=== PATIENT | male | born 2000 | race Caucasian/White ===

== ENCOUNTER 2022-06-15 05:45 | Day surgery (SDC) | payer OTHER, SELFPAY ==
[2022-06-15] VITALS (16 sets, daily range): BP systolic 99–122; BP diastolic 58–85; PULSE 61–84; RESP 12–18; TEMP 36.4–37.1; O2SAT 95–100; BMI 20.2
--- NOTE | 2022-06-15 05:59 | ED.GENADULT ---
HPI - General Adult General Time Seen by Provider: 05:59 Date Seen: 06/15/22 Chief complaint: Abdominal Pain Stated complaint: abdominal pain Time Seen by Provider: 06/15/22 05:55 Source: patient and RN notes reviewed Mode of arrival: ambulatory Limitations: no limitations History of Present Illness HPI narrative: 21-year-old male who presents with abdominal pain. Patient started having abdominal pain with nausea, vomiting day before yesterday. Pain is worse with movement. Denies diarrhea, no blood in the stools, no urinary symptoms. Has taken antacids with no relief. No ill contacts. Denies chest pain, shortness of breath, cough. Subjective fever and body aches yesterday. Related Data Home Medications Medication Instructions Recorded Confirmed cetirizine 10 mg tablet (24Hour 10 mg PO DAILY PRN 06/15/22 06/15/22 Allergy) escitalopram oxalate 10 mg tablet 10 mg PO DAILY 06/15/22 06/15/22 (Lexapro) finasteride 1 mg tablet 1 mg PO DAILY 06/15/22 06/15/22 lisdexamfetamine 30 mg capsule 30 mg PO DAILY 06/15/22 06/15/22 (Vyvanse) spironolactone 100 mg tablet 100 mg PO DAILY 06/15/22 06/15/22 (Aldactone) Allergies Allergy/AdvReac Type Severity Reaction Status Date / Time No Known Drug Allergies Allergy Verified 06/15/22 06:07 Review of Systems Status of ROS: Reports: 10 or more systems reviewed and unremarkable except as noted in History and below [facility] Medical History (Updated 06/15/22 @ 07:44 by Valentino Yu MD) Depression ?F32.A - Depression, unspecified (ICD-10) Surgical History (Updated 06/15/22 @ 06:29 by Dorian Robert RN) No significant past surgical history Social History Smoking Status: Never smoker Do you use any of these nicotine containing products: Vaping Products Second hand tobacco smoke exposure: No How often do you have a drink containing alcohol: never How often do you have six or more drinks on one occasion: Never AUDIT-C Alcohol total score: 0 Non-prescribed substance use: marijuana (any form) Exam Narrative: Exam Narrative: General: Well-developed and well-nourished, no acute distress Head: Atraumatic and normocephalic Eyes: Pupils are equal reactive, extraocular motions intact, conjunctiva clear ENT: External nose and ears are normal, posterior pharynx without erythema or exudate Neck: No midline cervical tenderness, full spontaneous range of motion the neck, trachea midline, no adenopathy Heart: Regular rate and rhythm no murmurs or thrills Lungs: Clear to auscultation bilaterally without wheezes or crackles Abdomen: Soft, diffuse lower abdominal tenderness worse in the right lower quadrant,, nondistended with active bowel sounds Musculoskeletal: No tenderness, deformity, or edema Neurologic: Awake, alert, and oriented x3, no gross focal neurologic deficits, cranial nerves intact as tested Psych: Mood and affect are appropriate Skin: No rashes Const: Vital Signs, click to edit/add: Vital Signs - 24 hr 06/15/22 05:56 06/15/22 06:20 Temperature 98.2 F 98.2 F Pulse Rate [Right Pulse Oximeter] 84 Respiratory Rate 18 Blood Pressure [Ri ght Upper Arm] 115/72 Pulse Oximetry 99 Oxygen Delivery Me thod Room Air Course Course Hospital Course: Patient seen examined, prior records reviewed. Patient presents with nausea, vomiting, abdominal pain. Initially says the abdominal pain is in the upper abdomen low abdomen, on exam diffuse lower abdominal tenderness worse on the right side. Likely gastroenteritis, cannot exclude appendicitis. Labs and CT scan ordered along with fluids and Zofran. Reevaluation(s) Reevaluation #1: Labs independently interpreted by me demonstrate leukocytosis, basic panel is reassuring. CT scan performed without contrast although ordered with contrast independently interpreted by me demonstrates mildly prominent appendix at 7 mm without definite surrounding inflammatory changes, radiology interpretation agrees. Patient reexamined and again abdominal tenderness is worse in the right lower quadrant. Concern for possible early appendicitis. Discussed with Dr. Wilson, general surgery, who will examine the patient in the department. Time: 07:17 Reevaluation #2: Patient seen by Dr. Wilson in the emergency department, plan for surgery. No recommendations for antibiotics at this time. Time: 07:44 Vital Signs Vital signs: Initial Vital Signs Temperature 98.2 F 06/15/22 05:56 Temperature Source Temporal Artery Scan 06/15/22 05:56 Pulse Rate 84 06/15/22 05:56 Respiratory Rate 18 06/15/22 05:56 Blood Pressure 115/72 06/15/22 05:56 Blood Pressure Mean 86 06/15/22 05:56 Blood Pressure Position Sitting 06/15/22 05:56 Pulse Oximetry 99 06/15/22 05:56 Oxygen Delivery Method Room Air 06/15/22 05:56 Vital Signs Temperature 98.2 F 06/15/22 05:56 Pulse Rate 84 06/15/22 05:56 Respiratory Rate 18 06/15/22 05:56 Blood Pressure 115/72 06/15/22 05:56 Pulse Oximetry 99 06/15/22 05:56 Oxygen Delivery Method Room Air 06/15/22 05:56 Temperature 98.2 F 06/15/22 06:20 Pulse Rate 84 06/15/22 05:56 Respiratory Rate 18 06/15/22 05:56 Blood Pressure 115/72 06/15/22 05:56 Pulse Oximetry 99 06/15/22 05:56 Oxygen Delivery Method Room Air 06/15/22 05:56 Medical Decision Making Medical Records Medical records reviewed: Yes I reviewed the patient's medical records Lab Data Lab results reviewed: Yes I reviewed the patient's lab results Labs: Lab Results 06/15/22 Range/Units 06:18 WBC 17.53 H (4.50-11.00) K/uL RBC 4.10 L (4.30-5.90) m/uL Hgb 13.1 L (13.5-17.5) gm/dL Hct 37.9 (37.0-53.0) % MCV 92 (80-100) fL MCH 32 (26-34) pg MCHC 35 (32-36) gm/dL RDW Coeff of Shimon 11.9 (11.5-15.5) % Plt Count 222 (140-440) K/uL Neut % (Auto) 85.2 H (42.0-72.0) % Lymph % (Auto) 6.3 L (20-44) % [place] % (Auto) 7.2 (0.0-11.0) % Eos % (Auto) 1.0 (0.0-7.0) % Baso % (Auto) 0.1 (0.0-3.0) % Neut # (Auto) 14.90 H (1.7-7.0) K/uL Lymph # (Auto) 1.10 (0.90-2.90) K/uL [place] # (Auto) 1.30 H (0.00-0.90) K/UL Eos # (Auto) 0.20 (0.00-0.50) K/uL Baso # (Auto) 0.00 (0.00-0.30) K/uL Sodium 135 (135-149) mmol/L Potassium 3.6 (3.6-5.1) mmol/L Chloride 100 (96-114) mmol/L Carbon Dioxide 29 (20-32) mmol/L BUN 10 (5-24) mg/dL Creatinine 0.7 (0.5-1.5) mg/dL Estimated Creat Clear 153.99 Estimated GFR 134 ml/min Glucose 118 H (60-115) mg/dL Calcium 9.3 (8.4-10.6) mg/dL Total Bilirubin 1.4 (0.1-1.5) mg/dL Direct Bilirubin 0.0 (0.0-0.5) mg/dL AST 27 (12-35) U/L ALT 29 (4-50) U/L Alkaline Phosphatase 66 (40-150) U/L Total Protein 7.5 (6.0-8.3) g/dL Albumin 4.4 (3.3-5.0) g/dL Lipase 16 L (23-300) U/L Discharge Plan Discharge Clinical Impression: Acute appendicitis Patient Disposition: XFER to OR
--- NOTE | 2022-06-15 06:06 | CRLHL7_ITS ---
For Patients: As a result of the 21st Century Cures Act, medical imaging exams and procedure reports are released immediately into your electronic medical record. You may view this report before your referring provider. If you have questions, please contact your health care provider. INDICATION: Right upper quadrant pain. COMPARISON: None TECHNIQUE: CT examination of the abdomen and pelvis was performed without intravenous contrast. Thin section axial images were obtained from the lung bases through the pubic symphysis. Oral contrast was not administered. Please note that all CT scans at this facility use dose modulation, iterative reconstruction, and/or weight-based dosing when appropriate to reduce radiation dose to as low as reasonably achievable. FINDINGS: LUNG BASES: The lung bases as visualized appear normal.The heart size is normal at the lung bases. LIVER/BILIARY SYSTEM:The liver is normal in size and configuration given the lack of intravenous contrast. There is no visible focal mass and there is no intra- or extra hepatic biliary ductal dilatation.The gall bladder appears normal. ADRENALS: Normal non-contrast appearance KIDNEYS, URETERS and BLADDER:The kidneys are normal in size. There is no calcified calculus. There is no hydronephrosis or hydroureter or perinephric stranding. A 2 millimeter calcification is noted in the right pelvis. This does not appear to be in the right ureter though correlate with urinalysis. SPLEEN:Normal non-contrast appearance. PANCREAS: Normal non-contrast appearance. RETROPERITONEUM and MESENTERY: There is no mass, adenopathy or aortic aneurysm. GASTROINTESTINAL SYSTEM: The appendix is mildly prominent measuring about 7 millimeters. Greater than 6 millimeters is considered abnormal. No definite surrounding inflammatory change. PELVIS: No mass, adenopathy or free fluid. OSSEOUS STRUCTURES and ABDOMINAL WALL: There is an age-appropriate appearance of the osseous structures.No significant abdominal wall defect. OTHER: No free fluid or free air. IMPRESSION: 1. No specific abnormality noted in the right upper quadrant. 2. The appendix is mildly prominent measuring about 7 millimeters. Greater than 6 millimeters is generally considered abnormal. No definite surrounding inflammatory change. Correlate with potential signs symptoms of very early appendicitis. 3. Right pelvic calcification probably a phlebolith. No definite evidence of right-sided obstructive uropathy Please note that all CT scans at this facility use dose modulation, iterative reconstruction, and/or weight-based dosing when appropriate to reduce radiation dose to as low as reasonably achievable. Dictated by Jackson Monteiro MD @ 06/15/2022 7:08:05 AM (Electronically Signed)
[2022-06-15] MEDS: LACTATED RINGERS 1000 ML 1,000 ML IV (06:18)
[2022-06-15] MEDS: ONDANSETRON 2 MG/ML inj 4 MG IVP (06:18)
[2022-06-15] MEDS: KETOROLAC 15 MG/ML inj IVP (06:20)
[2022-06-15 06:29] LABS: Basophils Percent Auto 0.1 % (0.0-3.0); Hematocrit 37.9 % (37.0-53.0); Hemoglobin* 13.1 gm/dL (13.5-17.5); Immature Granulocytes Pct Auto 0.2 %; Lymphocytes Percent Auto 6.3 % (20-44); Mean Corpuscular HGB Conc 35 gm/dL (32-36); Mean Corpuscular Hemoglobin 32 pg (26-34); Mean Corpuscular Volume 92 fL (80-100); Monocytes Percent Auto 7.2 % (0.0-11.0); Neutrophils Percent Auto 85.2 % (42.0-72.0); Platelet Count* 222 K/uL (140-440); RDW Coefficient of Variation % 11.9 % (11.5-15.5); White Blood Count* 17.53 K/uL (4.50-11.00)
[2022-06-15 06:31] LABS: Slide Review Reflex No
[2022-06-15 06:38] LABS: Albumin* 4.4 g/dL (3.3-5.0)
[2022-06-15 06:39] LABS: Chloride* 100 mmol/L (96-114); Potassium* 3.6 mmol/L (3.6-5.1); Sodium* 135 mmol/L (135-149)
[2022-06-15 06:41] LABS: Aspartate Amino Transferase* 27 U/L (12-35); Bilirubin Total* 1.4 mg/dL (0.1-1.5); Carbon Dioxide* 29 mmol/L (20-32); Creatinine* 0.7 mg/dL (0.5-1.5); Est. Creatinine Clearance* 153.99; Estimated Glomerular Filt Rate 134 ml/min; Total Protein* 7.5 g/dL (6.0-8.3)
[2022-06-15 06:42] LABS: Alanine Aminotransferase* 29 U/L (4-50); Alkaline Phosphatase* 66 U/L (40-150); Blood Urea Nitrogen* 10 mg/dL (5-24); Calcium* 9.3 mg/dL (8.4-10.6); Glucose* 118 mg/dL (60-115); Lipase* 16 U/L (23-300)
--- NOTE | 2022-06-15 07:36 | PM.GSHP ---
History of Present Illness History of Present Illness Date Seen: 06/15/22 Chief complaint: abdominal pain Narrative: Roosevelt Bautista is a 21 year old male presented to the emergency department with worsening right lower quadrant abdominal pain. He states that the pain started around Sunday. Initially was higher up in his belly but then started to gravitate down towards the right lower quadrant. He does think he might have had pain like this before, although it has never been this severe. He does report a decrease in appetite. Denies any associated nausea or vomiting. He has not had a bowel movement, but has had a moment where he felt like he might have diarrhea. No fevers or chills. Review of Systems Status of ROS: Reports: 6 or more systems reviewed and unremarkable except as noted in History and below [facility] Medical History (Updated 06/15/22 @ 07:44 by Valentino Yu MD) Depression ?F32.A - Depression, unspecified (ICD-10) Surgical History (Updated 06/15/22 @ 06:29 by Dorian Robert RN) No significant past surgical history Social History Smoking Status: Never smoker Do you use any of these nicotine containing products: Vaping Products Second hand tobacco smoke exposure: No How often do you have a drink containing alcohol: never How often do you have six or more drinks on one occasion: Never AUDIT-C Alcohol total score: 0 Non-prescribed substance use: marijuana (any form) Meds Home Medications and Allergies Home Medications Medication Instructions Recorded Confirmed Type cetirizine 10 mg tablet (24Hour 10 mg PO DAILY PRN 06/15/22 06/15/22 History Allergy) escitalopram oxalate 10 mg tablet 10 mg PO DAILY 06/15/22 06/15/22 History (Lexapro) finasteride 1 mg tablet 1 mg PO DAILY 06/15/22 06/15/22 History lisdexamfetamine 30 mg capsule 30 mg PO DAILY 06/15/22 06/15/22 History (Vyvanse) spironolactone 100 mg tablet 100 mg PO DAILY 06/15/22 06/15/22 History (Aldactone) Allergies Allergy/AdvReac Type Severity Reaction Status Date / Time No Known Drug Allergies Allergy Verified 06/15/22 06:07 Exam Narrative: Exam Narrative: General: Alert and oriented, no acute distress Respiratory: Equal breath rise bilaterally, maintained on room air CV: Regular rhythm rate Abdomen: Soft, nondistended. Tender to palpation right lower quadrant with a little bit of guarding Const: Vital Signs, click to edit/add: Vital Signs - 24 hr 06/15/22 05:56 06/15/22 06:20 Temperature 98.2 F 98.2 F Pulse Rate [Right Pulse Oximeter] 84 Respiratory Rate 18 Blood Pressure [Ri ght Upper Arm] 115/72 Pulse Oximetry 99 Oxygen Delivery Me thod Room Air Results Results Labs: WBC [address] scan report/results: report reviewed and image reviewed Assessment and Plan Assessment and plan (1) Acute appendicitis: Status: Acute Plan The patient presented with a history and exam consistent with acute appendicitis. CT scan was reviewed and does demonstrate a mildly dilated appendix, no inflammatory changes. This is suspicious for an early appendicitis. I discussed the treatment options with the patient including non-surgical and surgical options. I recommended laparoscopic appendectomy. The risks of surgery were reviewed with the patient including the risks of bleeding, post-operative wound or intra-abdominal infection, injury to abdominal structures and possible conversion to an open operation. We also discussed anesthetic complications including PR, stroke, respiratory failure and blood clots. The patient voiced an understanding of our conversation, had the opportunity to ask questions, agreed to accept the risks of surgery and asked that we proceed with surgery. -OR for laparoscopic appendectomy
[2022-06-15 08:38] LABS: SARS PCR* Negative SARS-CoV-2 (Negative)
--- NOTE | 2022-06-15 08:41 | W.ANESCHARGE ---
Anesthesia Charges Start Date/Time Anesthesia Start Date: 06/15/22 Anesthesia Start Time: 09:05 Stop Date/Time Anesthesia Stop Date: 06/15/22 Anesthesia Stop Time: 10:06 Summary Emergency: MDA
[2022-06-15] MEDS: LACTATED RINGERS 1000 ML 1,000 ML 100 ML IV (09:10)
[2022-06-15] MEDS: PIPERACILLIN/TAZOBACTAM 3.375 GM INJ IVPB (09:20)
[2022-06-15] MEDS: BUPIVACAINE 0.5 % 10 ML VIAL INJECTION (09:55)
--- NOTE | 2022-06-15 09:56 | PM.GSPRC ---
Operative Note Date of procedure: 06/15/22 Pre-op diagnosis: Acute appendicitis Post-op diagnosis: Same Type of Procedure: Laparoscopic appendectomy Indications: The patient is a 21-year-old male who presented to the emergency department with several days of right lower quadrant pain. CT scan revealed early acute appendicitis. He had also had a elevated white blood cell count. It was recommended that he undergo appendectomy. After discussion, he agreed to proceed. Procedure Description: After discussing the risks and benefits of the procedure, the patient signed informed consent.? The operative site was marked and the patient was brought to the operating room and placed on the operating table in supine position.? Care was taken to pad the patient's pressure points.?? The patient was then intubated by anesthesia.?? The operative site was then prepped and draped in the usual sterile fashion.? A time-out was then performed. Entrance to the abdomen was gained via [place] technique at the umbilicus. Dissection was taken down to the fascia and this was incised with the scissors. The peritoneal cavity was entered. [place] port was then placed and the abdomen was insufflated. This was briefly surveyed. 5 mm ports were then placed under direct vision in the left upper and left lower quadrants. The small bowel was gently moved out of the way and the appendix was in view. A small amount of dissection was necessary to free the appendix from the surrounding pelvic attachments. The appendix was grasped and pulled into view. It was inflamed and dilated however not perforated. A mesenteric window was created between the base of the appendix and the mesoappendix. An Endo-FIDEL gold load stapler was then used to transect the appendix at its base. A an additional goal load stapler was then used to divide the mesoappendix. The staple lines were inspected for bleeding. A small amount of bleeding on the mesoappendix was controlled with a clip. The appendix was then removed from the abdomen using an Endo-Catch bag. The specimen was sent to pathology. Hemostasis appeared excellent at this point. The ports were then removed and The 12 mm port site fascia was closed with 0 Vicryl. The skin was then closed with absorbable subcuticular suture. Sterile dressings were then applied. Instrument sponge and needle counts were correct at the end of the case. The patient was then woken and transported to the PACU in stable condition. Findings: Acute non perforated appendicitis Anesthesia: GETA Surgeon: Abigail Matos MD Estimated blood loss (mL): 5 Specimen: Appendix Condition: stable Disposition: PACU
--- NOTE | 2022-06-15 10:08 | W.ANESCHARGE ---
Anesthesia Charges Start Date/Time Anesthesia Start Date: 06/15/22 Anesthesia Start Time: 09:05 Stop Date/Time Anesthesia Stop Date: 06/15/22 Anesthesia Stop Time: 10:06 Summary Emergency: [facility] TABLE
[2022-06-15] MEDS: fentaNYL 100 MCG/2 ML inj 50 MCG IVP ×2 (10:34→10:38)
[2022-06-15] MEDS: HYDROCODONE-ACETAMIN 5-325 MG 1 TAB PO (11:13)
== END 2022-06-15 12:35 | disposition home or self-care (01) ==
LOC: ED 07:49 → OR 09:10 → SS 09:32 → OR 09:34
PROVIDERS: Emergency Provider Family Medicine; Visit Provider Surgery
PROC: 0DTJ4ZZ Resection of Appendix, Percutaneous Endoscopic Approach (ICD-10-PCS; CPT 44970; principal; 2022-06-15 08:45)
DX: K35.80 Unspecified acute appendicitis (principal)
CPT/HCPCS: 44970; 00840; 36415; 74176; 80048; 80076; 83690; 85025; 87635; 88304; 99140; 99285; A9270; J0330; J1100; J1885; J2250; J2405; J2543; J2710; J3010; J7120; S0020